=== PATIENT | male | born 1965 | race Caucasian/White ===

== ENCOUNTER 2017-03-16 08:36 | Outpatient (CLI) | payer MEDICAID ==
[~2017-03-16] VITALS: Ht 185.4 cm; Wt 136.1 kg
[2017-03-16 11:09] LABS: BASOPHILS % (AUTO) 0.4 % (0-1); EOSINOPHILS # (AUTO) 0.3 X10'3 (0-0.9); EOSINOPHILS % (AUTO) 3.6 % (0-6); LYMPHOCYTES % (AUTO) 21.4 % (21-51); MEAN CORPUSCULAR HEMOGLOBIN 28.8 PG (27.0-31.0); MEAN CORPUSCULAR HGB CONC 33.9 % (33.0-36.5); MEAN CORPUSCULAR VOLUME 84.9 FL (78-98); MEAN PLATELET VOLUME 10.3 FL (7.4-10.4); MONOCYTES # (AUTO) 0.5 X10'3 (0-0.9); MONOCYTES % (AUTO) 5.5 % (2-12); NEUTROPHILS # (AUTO) 6.6 X10'3 (1.8-7.7); NEUTROPHILS % (AUTO) 69.1 % (42-75); PRE OP HEMATOCRIT 45.6 % (42.0-52.0); PRE OP HEMOGLOBIN 15.4 g/dL (14.0-17.9); PRE OP PLATELET COUNT 179 X10'3 (140-440); RED BLOOD COUNT 5.37 X10'6 (4.70-6.10); RED CELL DISTRIBUTION WIDTH 13.6 % (11.5-14.5)
[2017-03-16 11:10] LABS: CLARITY,URINE CLEAR (Clear); COLOR,URINE YELLOW (Yellow); GLUCOSE, URINE NEGATIVE (Neg); KETONES,URINE NEGATIVE (Neg); LEUKOCYTE ESTERASE ,URINE MODERATE (Neg); NITRITES, URINE NEGATIVE (Neg); OCCULT BLOOD,URINE NEGATIVE (Neg); PROTEIN,URINE NEGATIVE (Neg); UROBILINOGEN,URINE 0.2 E.U/dL (0.2-1.0)
[2017-03-16 11:23] LABS: SQUAMOUS EPITHELIAL CELL,UR FEW /LPF (FEW); UA COLLECTION TYPE NON-SPECIFIED
[2017-03-16 11:24] LABS: BACTERIA,URINE 1+ /HPF (Neg); RBC,URINE 0-2 /HPF (0-2)
[2017-03-16 11:29] LABS: ALBUMIN/GLOBULIN RATIO 1.1 (1.1-1.5); ALKALINE PHOSPHATASE 119 IU/L (46-116); BLOOD UREA NITROGEN 14 MG/DL (7-18); CALCIUM 8.9 MG/DL (8.5-10.1); CHLORIDE 99 MMOL/L (99-107); PRE OP ALT 54 U/L (30-65); PRE OP ANION GAP 7 (8-16); PRE OP AST 24 U/L (10-37); PRE OP BILIRUB, TOTAL 0.5 MG/DL (0.0-1.0); PRE OP GLUCOSE 131 MG/DL (70-104); PRE OP POTASSIUM 3.7 MMOL/L (3.4-5.1); PRE OP SODIUM 139 MMOL/L (135-145); TOTAL CARBON DIOXIDE 32.9 MMOL/L (24-32); TOTAL PROTEIN 7.7 G/DL (6.4-8.2); eGFR 79 ML/MIN
[2017-03-16] MEDS ORDERED: HYDR25TA4 (14:03)
[2017-03-16] MEDS ORDERED: FLUT15.87 (14:03)
[2017-03-16] MEDS ORDERED: PREG100C PO (14:03)
[2017-03-16] MEDS ORDERED: MORP-64 (14:03)
[2017-03-16] MEDS ORDERED: ATOR-2 PO (14:03)
[2017-03-16] MEDS ORDERED: BISA5TAB10 (14:03)
[2017-03-16] MEDS ORDERED: PANT40TA4 (14:03)
[2017-03-16] MEDS ORDERED: AMLO5TAB16 (14:03)
[2017-03-16] MEDS ORDERED: NITR4.1S2 TL (14:03)
[2017-03-16] MEDS ORDERED: HYDR-3973 (14:03)
[2017-03-16] MEDS ORDERED: CHOL400T (14:03)
[2017-03-16] MEDS ORDERED: METO100T14 (14:03)
[2017-03-16] MEDS ORDERED: DULO20CA17 (14:03)
[2017-03-16] MEDS ORDERED: QUET100T33 (14:03)
[2017-03-16] MEDS ORDERED: ASPI-845 (14:03)
[2017-03-20] MEDS ORDERED: QUET-1 PO ×4 (15:44→15:48)
[2017-03-20] MEDS ORDERED: DULO20CA50 PO (15:47)
[2017-03-20] MEDS ORDERED: CHOL400T PO (15:49)
[2017-03-20] MEDS ORDERED: PREG50CA PO (15:51)
[2017-03-20] MEDS ORDERED: PANT-47 PO (15:52)
[2017-03-20] MEDS ORDERED: METO-467 PO ×2 (15:54→15:55)
[2017-03-20] MEDS ORDERED: HYDR-565 PO (15:57)
[2017-03-20] MEDS ORDERED: HYDR25TA4 PO (15:58)
[2017-03-20] MEDS ORDERED: BISA-155 PO (15:59)
[2017-03-20] MEDS ORDERED: FLUT16SP2 BOTHNARES (16:00)
[2017-03-20] MEDS ORDERED: NITR0.4T SL (16:01)
[2017-03-20] MEDS ORDERED: AMLO5TAB4 PO (16:02)
[2017-03-20] MEDS ORDERED: ASPI-845 PO (16:03)
[2017-03-20] MEDS ORDERED: NICO-687 TOP (16:06)
[2017-03-21] MEDS ORDERED: ringers solution, lacted 1,000 ML IV SCH (05:00)
[2017-03-21] MEDS ORDERED: DOCUMENT DATE & TIME OF BETA-BLOCKER PO ONE (05:30)
[2017-03-21] MEDS ORDERED: famotidine 20mg tablet PO ONE (05:30)
[2017-03-21] MEDS ORDERED: ceFAZolin inj. 3,000 MG in normal saline 100ml IV soln 100 ML IV ONE (05:30)
[2017-03-31] MEDS ORDERED: CYCLOSPORINE (08:01)
[2017-03-31] MEDS ORDERED: antibiotic (08:02)
[2017-03-31] MEDS ORDERED: OXYC-657 PO (08:03)
== END 2017-03-16 23:59 | disposition home or self-care (01) ==
LOC: PRE-OP 08:36 → EDSTATUS 03-21 14:30
PROVIDERS: ATTEND Surgery
DX: D17.30 Benign lipomatous neoplasm of skin and subcutaneous tissue of unspecified sites (principal)
CPT/HCPCS: 36415; 80053; 81001; 85025; 87077; 87088; 87186; J0690; J7030; J7120

== ENCOUNTER 2017-10-10 19:10 | Emergency (ER) | payer MEDICAID ==
[~2017-10-10] VITALS: Ht 188 cm; Wt 141.6 kg
[~2017-10-10 19:10] MED LIST: AMLO5TAB4 PO; ASPI-845 PO; ATOR-2 PO; BISA-155 PO; CHOL400T PO; DULO20CA50 PO; FLUT16SP2 BOTHNARES; HYDR-565 PO; HYDR25TA4 PO; METO-467 PO; NICO-687 TOP; NITR0.4T SL; PANT-47 PO; PREG50CA PO; QUET-1 PO; antibiotic
[2017-10-10 19:48] LABS: BASOPHILS # (AUTO) 0.2 X10'3 (0-0.2); BASOPHILS % (AUTO) 1.3 % (0-1); EOSINOPHILS # (AUTO) 0.5 X10'3 (0-0.9); HEMATOCRIT 42.5 % (42.0-52.0); HEMOGLOBIN 14.5 g/dl (14.0-17.9); LYMPHOCYTES # (AUTO) 2.1 X10'3 (1.1-4.8); LYMPHOCYTES % (AUTO) 18.2 % (21-51); MEAN CORPUSCULAR HEMOGLOBIN 29.2 PG (27.0-31.0); MEAN CORPUSCULAR HGB CONC 34.2 % (33.0-36.5); MEAN CORPUSCULAR VOLUME 85.2 FL (78-98); MEAN PLATELET VOLUME 9.3 FL (7.4-10.4); MONOCYTES # (AUTO) 0.7 X10'3 (0-0.9); MONOCYTES % (AUTO) 6.2 % (2-12); NEUTROPHILS # (AUTO) 8.2 X10'3 (1.8-7.7); NEUTROPHILS % (AUTO) 70.3 % (42-75); PLATELET COUNT 196 X10'3 (140-440); RED BLOOD COUNT 4.98 X10'6 (4.70-6.10); WHITE BLOOD COUNT 11.7 X10'3 (4.5-11.0)
[2017-10-10 19:58] LABS: PARTIAL THROMBOPLASTIN TIME 29 SECONDS (22-32); PROTHROMBIN TIME 10.1 SECONDS (9.0-12.0)
[2017-10-10 20:03] LABS: ALANINE AMINOTRANSFERASE 55 U/L (12-78); ALBUMIN 3.7 G/DL (3.4-5.0); ALBUMIN/GLOBULIN RATIO 1.1 (1.1-1.5); ALKALINE PHOSPHATASE 86 IU/L (46-116); ANION GAP 7 (8-16); ASPARTATE AMINO TRANSFERASE 23 U/L (10-37); BILIRUBIN,TOTAL 0.3 MG/DL (0.1-1.0); BLOOD UREA NITROGEN 12 MG/DL (7-18); BUN/CREATININE RATIO 11.8 (5.4-32.0); CALCIUM 9.1 MG/DL (8.5-10.1); CHLORIDE 99 MMOL/L (99-107); CREATININE 1.02 MG/DL (0.60-1.10); GLUCOSE 116 MG/DL (70-104); POTASSIUM 3.7 MMOL/L (3.5-5.1); SODIUM 135 MMOL/L (135-145); TOTAL CARBON DIOXIDE 28.8 MMOL/L (24-32); eGFR 77 ML/MIN
[2017-10-10] MEDS ORDERED: HYDROcodone/acetaminophen 5mg/325mg tablet PO ONE (20:30)
[2017-10-10] MEDS ORDERED: AMOX-419 PO (20:40)
[2017-10-10] MEDS ORDERED: METH4TAB3 PO (20:40)
[2017-10-10 20:51] VITALS: BP 156/90
== END 2017-10-10 20:57 | disposition home or self-care (01) ==
LOC: ER 19:11
DX: S80.02XA Contusion of left knee, initial encounter (principal); R42 Dizziness and giddiness; M25.462 Effusion, left knee; I25.10 Atherosclerotic heart disease of native coronary artery without angina pectoris; I25.2 Old myocardial infarction; F17.200 Nicotine dependence, unspecified, uncomplicated; Z98.61 Coronary angioplasty status; Z88.8 Allergy status to other drugs, medicaments and biological substances; W18.30XA Fall on same level, unspecified, initial encounter; Y93.89 Activity, other specified; Y92.89 Other specified places as the place of occurrence of the external cause; Y99.8 Other external cause status
CPT/HCPCS: 36415; 70450; 71045; 73564; 80053; 83880; 84484; 85025; 85610; 85730; 93005; 99285

== ENCOUNTER 2018-11-09 11:18 | Day surgery (SDC) | payer MEDICAID ==
[2018-11-09] VITALS (9 sets, daily range): BP systolic 132–153; BP diastolic 74–98
[~2018-11-09] VITALS: Ht 185.4 cm; Wt 137.9 kg
[~2018-11-09 11:18] MED LIST changes: +HYDR-4353 PO; -HYDR-565 PO; +METH4TAB3 PO
[2018-11-09] MEDS ORDERED: normal saline 1000ml 1,000 ML IV SCH (11:45)
[2018-11-09] MEDS ORDERED: diphenhydrAMINE 25mg capsule PO ONE (11:45)
[2018-11-09] MEDS ORDERED: HYDR25TA4 PO (12:35)
[2018-11-09] MEDS ORDERED: METO-477 PO (12:35)
[2018-11-09] MEDS ORDERED: CLOP75TA15 PO (12:35)
[2018-11-09] MEDS ORDERED: DULO-31 PO ×2 (12:35)
[2018-11-09 12:37] LABS: PARTIAL THROMBOPLASTIN TIME 30 SECONDS (22-32)
[2018-11-09 12:40] LABS: ALANINE AMINOTRANSFERASE 31 U/L (12-78); ALBUMIN 4.7 G/DL (3.4-5.0); ALBUMIN/GLOBULIN RATIO 1.3 (1.1-1.5); ALKALINE PHOSPHATASE 87 IU/L (46-116); ANION GAP 12 (8-16); ASPARTATE AMINO TRANSFERASE 10 U/L (10-37); BILIRUBIN,TOTAL 0.5 MG/DL (0.1-1.0); BLOOD UREA NITROGEN 9 MG/DL (7-18); BUN/CREATININE RATIO 10.5 (5.4-32.0); CALCIUM 9.4 MG/DL (8.5-10.1); CHLORIDE 101 MMOL/L (99-107); CREATININE 0.86 MG/DL (0.60-1.10); GLUCOSE 93 MG/DL (70-104); SODIUM 141 MMOL/L (135-145); TOTAL CARBON DIOXIDE 27.6 MMOL/L (24-32); TOTAL PROTEIN 8.2 G/DL (6.4-8.2); eGFR > 90 ML/MIN
[2018-11-09] MEDS ORDERED: OXYGEN NASALCANN (12:40)
[2018-11-09] MEDS ORDERED: ALB0.5UD IH (12:40)
[2018-11-09] MEDS ORDERED: FURO40TA4 PO (12:40)
[2018-11-09] MEDS ORDERED: POTA20TA19 PO (12:40)
[2018-11-09 12:49] LABS: BASOPHILS # (AUTO) 0.1 X10'3 (0-0.2); BASOPHILS % (AUTO) 1.2 % (0-1); EOSINOPHILS # (AUTO) 0.3 X10'3 (0-0.9); EOSINOPHILS % (AUTO) 3.5 % (0-6); HEMATOCRIT 49.7 % (42.0-52.0); HEMOGLOBIN 17.3 g/dl (14.0-17.9); LYMPHOCYTES % (AUTO) 27.2 % (21-51); MEAN CORPUSCULAR HEMOGLOBIN 31.7 PG (27.0-31.0); MEAN CORPUSCULAR HGB CONC 34.7 g/dL (33.0-36.5); MEAN CORPUSCULAR VOLUME 91.3 FL (78-98); MONOCYTES # (AUTO) 0.5 X10'3 (0-0.9); MONOCYTES % (AUTO) 6.8 % (2-12); NEUTROPHILS # (AUTO) 4.6 X10'3 (1.8-7.7); NEUTROPHILS % (AUTO) 61.3 % (42-75); PLATELET COUNT 200 X10'3 (140-440); RED BLOOD COUNT 5.44 X10'6 (4.70-6.10); RED CELL DISTRIBUTION WIDTH 16.1 % (11.5-14.5); WHITE BLOOD COUNT 7.5 X10'3 (4.5-11.0)
[2018-11-09 12:50] LABS: LARGE PLATELETS FEW; PLATELET ESTIMATE NORMAL
[2018-11-09] MEDS ORDERED: midazolam 2 mg/2 ml injection ONE ×2 (14:03→14:33)
[2018-11-09] MEDS ORDERED: iohexol 350MG/ML 100ml bottle IV ONE ×2 (14:04→14:50)
[2018-11-09] MEDS ORDERED: fentaNYL/PF 50MCG/1 ML 2ML syringe ONE ×2 (14:04→14:34)
[2018-11-09] MEDS ORDERED: iohexol 350 MG/ML 50ML vial IV ONE (14:04)
[2018-11-09] MEDS ORDERED: LIDOcaine 1% (10mg/ml)w/preservative injection 20ml MDV ONE (14:04)
[2018-11-09] MEDS ORDERED: proCHLORperazine 10 MG/2 ml inj ONE (14:27)
[2018-11-09] MEDS ORDERED: HYDROcodone/acetaminophen 5mg/325mg tablet PO PRN (15:40)
[2018-11-09] MEDS ORDERED: proCHLORperazine 10 MG/2 ml inj IV PRN (15:40)
[2018-11-09] MEDS ORDERED: ondansetron/PF 4mg/2ml inj IV PRN (15:40)
[2018-11-09] MEDS ORDERED: normal saline 1000ml 1,000 ML IV ONE (15:40)
[2018-11-09] MEDS ORDERED: HYDROcodone/acetaminophen 10/325mg tab PO PRN (15:40)
== END 2018-11-09 18:40 | disposition home or self-care (01) ==
LOC: SSTAY O 11:18
PROVIDERS: ATTEND Internal Medicine Cardiovascular Disease
DX: R94.39 Abnormal result of other cardiovascular function study (principal); R07.9 Chest pain, unspecified; I25.10 Atherosclerotic heart disease of native coronary artery without angina pectoris; I25.82 Chronic total occlusion of coronary artery; Z79.899 Other long term (current) drug therapy
CPT/HCPCS: 36415; 80053; 83735; 85025; 85610; 85730; 93005; 93459; 99152; 99153; C1769; C1894; J0780; J1644; J2001; J2250; J3010; J7030; Q0163; Q9967; A4620; A6258; C1760

== ENCOUNTER 2020-05-08 10:44 | Day surgery (SDC) | payer MEDICAID ==
[2020-05-08] VITALS (12 sets, daily range): BP systolic 129–165; BP diastolic 66–110
[~2020-05-08] VITALS: Ht 185.4 cm; Wt 123.8 kg
[~2020-05-08 10:44] MED LIST changes: +ALB0.5UD IH; -BISA-155 PO; +CLOP75TA15 PO; +DULO-31 PO; -DULO20CA50 PO; -FLUT16SP2 BOTHNARES; +FURO40TA4 PO; -HYDR-4353 PO; -METH4TAB3 PO; -METO-467 PO; +METO-477 PO; +OXYGEN NASALCANN; +POTA20TA19 PO; -QUET-1 PO; -antibiotic
[2020-05-08] MEDS ORDERED: diphenhydrAMINE 25mg capsule PO PRN (11:00)
[2020-05-08] MEDS ORDERED: normal saline 1,000 ML IV SCH (11:00)
[2020-05-08] MEDS ORDERED: LISI20TA28 PO (11:49)
[2020-05-08] MEDS ORDERED: APIX5TAB3 PO (11:49)
[2020-05-08] MEDS ORDERED: midazolam 1 mg/ML 2ml injection ONE ×3 (12:01→13:03)
[2020-05-08] MEDS ORDERED: fentaNYL/PF 50MCG/1 ML 2ML syringe ONE (12:01)
[2020-05-08] MEDS ORDERED: IOHEXOL 350 MG/ML INFUS..BTL 75ML IV ONE (12:01)
[2020-05-08] MEDS ORDERED: heparin 1,000unit/ml 10ml vial 10 ML ONE (12:01)
[2020-05-08] MEDS ORDERED: LIDOcaine 1% (10mg/ml)w/preservative injection 20ml MDV ONE (12:01)
[2020-05-08] MEDS ORDERED: iohexol 350MG/ML 100ml bottle IV ONE ×2 (12:02→13:24)
[2020-05-08 12:38] LABS: ALBUMIN 4.1 G/DL (3.4-5.0); ANION GAP 11 (8-16); BLOOD UREA NITROGEN 9 MG/DL (7-18); BUN/CREATININE RATIO 8.9 (5.4-32.0); CALCIUM 9.6 MG/DL (8.5-10.1); CHLORIDE 103 MMOL/L (99-107); CREATININE 1.01 MG/DL (0.60-1.10); GLUCOSE 107 MG/DL (70-104); MAGNESIUM 2.2 MG/DL (1.5-2.4); POTASSIUM 3.6 MMOL/L (3.5-5.1); SODIUM 142 MMOL/L (135-145); TOTAL CARBON DIOXIDE 28.3 MMOL/L (24-32); eGFR 77 ML/MIN
[2020-05-08 12:40] LABS: BASOPHILS # (AUTO) 0.1 X10'3 (0-0.2); EOSINOPHILS # (AUTO) 0.2 X10'3 (0-0.9); EOSINOPHILS % (AUTO) 1.6 % (0-6); HEMATOCRIT 50.4 % (42.0-52.0); HEMOGLOBIN 16.3 g/dl (14.0-17.9); LYMPHOCYTES # (AUTO) 2.1 X10'3 (1.1-4.8); LYMPHOCYTES % (AUTO) 17.9 % (21-51); MEAN CORPUSCULAR HEMOGLOBIN 27.1 PG (27.0-31.0); MEAN CORPUSCULAR HGB CONC 32.5 g/dL (33.0-36.5); MEAN CORPUSCULAR VOLUME 83.4 FL (78-98); MEAN PLATELET VOLUME 10.1 FL (7.4-10.4); MONOCYTES # (AUTO) 0.9 X10'3 (0-0.9); MONOCYTES % (AUTO) 7.2 % (2-12); NEUTROPHILS # (AUTO) 8.6 X10'3 (1.8-7.7); NEUTROPHILS % (AUTO) 72.3 % (42-75); PLATELET COUNT 186 X10'3 (140-440); RED BLOOD COUNT 6.04 X10'6 (4.70-6.10); RED CELL DISTRIBUTION WIDTH 18.8 % (11.5-14.5); WHITE BLOOD COUNT 11.9 X10'3 (4.5-11.0)
[2020-05-08 13:26] LABS: ANISOCYTOSIS 2+; LARGE PLATELETS FEW; PLATELET ESTIMATE NORMAL; POLYCHROMASIA 1+
[2020-05-08] MEDS ORDERED: ondansetron/PF 4mg/2ml inj IV PRN (14:15)
[2020-05-08] MEDS ORDERED: proCHLORperazine 10 MG/2 ml inj IV PRN (14:20)
[2020-05-08] MEDS ORDERED: HYDROcodone/acetaminophen 5mg/325mg tablet PO PRN (14:20)
[2020-05-08] MEDS ORDERED: HYDROcodone/acetaminophen 10/325mg tab PO PRN (14:20)
== END 2020-05-08 17:36 | disposition home or self-care (01) ==
LOC: SSTAY O 10:44
PROVIDERS: ATTEND Internal Medicine Cardiovascular Disease
DX: R94.39 Abnormal result of other cardiovascular function study (principal); R07.89 Other chest pain; I25.119 Atherosclerotic heart disease of native coronary artery with unspecified angina pectoris; I25.82 Chronic total occlusion of coronary artery; I25.2 Old myocardial infarction; I48.0 Paroxysmal atrial fibrillation; I10 Essential (primary) hypertension; J44.9 Chronic obstructive pulmonary disease, unspecified; Z95.1 Presence of aortocoronary bypass graft; E78.5 Hyperlipidemia, unspecified; Z88.8 Allergy status to other drugs, medicaments and biological substances
CPT/HCPCS: 36415; 80048; 83735; 85025; 85610; 92920; 93459; 99152; 99153; C1725; C1751; C1760; C1769; C1894; J1644; J2001; J2250; J3010; J7030; Q0163; Q9967; 85008; A4620; A6258; C9607

== ENCOUNTER 2021-10-22 11:03 | Emergency (ER) | payer MEDICAID ==
[~2021-10-22] VITALS: Ht 185.4 cm; Wt 132.7 kg
[~2021-10-22 11:03] MED LIST changes: +APIX5TAB3 PO; -ASPI-845 PO; -CHOL400T PO; -CLOP75TA15 PO; +LISI20TA28 PO; -NICO-687 TOP; +POTA-207 PO; -POTA20TA19 PO
[2021-10-22 12:00] LABS: BASOPHILS # (AUTO) 0.1 X10'3 (0-0.2); BASOPHILS % (AUTO) 1.2 % (0-1); EOSINOPHILS # (AUTO) 0.2 X10'3 (0-0.9); EOSINOPHILS % (AUTO) 1.7 % (0-6); HEMATOCRIT 51.3 % (42.0-52.0); HEMOGLOBIN 16.2 g/dl (14.0-17.9); LYMPHOCYTES # (AUTO) 2.1 X10'3 (1.1-4.8); LYMPHOCYTES % (AUTO) 16.8 % (21-51); MEAN CORPUSCULAR HEMOGLOBIN 23.6 PG (27.0-31.0); MEAN CORPUSCULAR HGB CONC 31.6 g/dL (33.0-36.5); MEAN CORPUSCULAR VOLUME 74.8 FL (78-98); MEAN PLATELET VOLUME 9.6 FL (7.4-10.4); MONOCYTES # (AUTO) 0.8 X10'3 (0-0.9); MONOCYTES % (AUTO) 6.6 % (2-12); NEUTROPHILS # (AUTO) 9.1 X10'3 (1.8-7.7); NEUTROPHILS % (AUTO) 73.7 % (42-75); PLATELET COUNT 175 X10'3 (140-440); RED BLOOD COUNT 6.86 X10'6 (4.70-6.10); RED CELL DISTRIBUTION WIDTH 22.3 % (11.5-14.5); WHITE BLOOD COUNT 12.3 X10'3 (4.5-11.0)
[2021-10-22 12:18] LABS: ALANINE AMINOTRANSFERASE 32 U/L (12-78); ALBUMIN 4.2 G/DL (3.4-5.0); ALKALINE PHOSPHATASE 102 IU/L (46-116); ANION GAP 12 (8-16); ASPARTATE AMINO TRANSFERASE 18 U/L (10-37); BILIRUBIN,TOTAL 0.4 MG/DL (0.1-1.0); BLOOD UREA NITROGEN 9 MG/DL (7-18); CALCIUM 9.3 MG/DL (8.5-10.1); CHLORIDE 96 MMOL/L (99-107); CREATININE 1.13 MG/DL (0.60-1.10); GLUCOSE 140 MG/DL (70-104); POTASSIUM 3.2 MMOL/L (3.5-5.1); SODIUM 138 MMOL/L (135-145); TOTAL CARBON DIOXIDE 30.3 MMOL/L (24-32); TOTAL PROTEIN 8.4 G/DL (6.4-8.2); eGFR 67 ML/MIN
[2021-10-22 12:20] LABS: ANISOCYTOSIS 3+; GIANT PLATELET FEW; LARGE PLATELETS FEW; MICROCYTOSIS 1+; PLATELET ESTIMATE NORMAL
[2021-10-22 12:21] LABS: HYPOCHROMASIA 1+
[2021-10-22 12:26] LABS: MAGNESIUM 2.1 MG/DL (1.5-2.4)
[2021-10-22] MEDS ORDERED: potassium Cl 20 mEq SR tablet PO STA (13:09)
[2021-10-22 13:34] VITALS: BP 127/91
[2021-10-22] MEDS ORDERED: diphenhydrAMINE 25mg capsule PO PRN (14:15)
[2021-10-22] MEDS ORDERED: FURO80TA3 PO (14:52)
[2021-10-22] MEDS ORDERED: PREG300C19 PO (14:52)
[2021-10-22] MEDS ORDERED: DULO60CA65 PO (14:52)
[2021-10-22] MEDS ORDERED: METO50TA16 PO (14:52)
[2021-10-22] MEDS ORDERED: ISOS30TA84 PO (14:56)
[2021-10-22] MEDS ORDERED: ATRIN INH (14:56)
[2021-10-22] MEDS ORDERED: PROZ10C PO (14:56)
[2021-10-22] MEDS ORDERED: MIRT45TA83 PO (14:56)
[2021-10-22] MEDS ORDERED: SPIR25TA5 PO (14:56)
[2021-10-22] MEDS ORDERED: ARIP5TAB60 PO (14:57)
== END 2021-10-22 13:35 | disposition home or self-care (01) ==
LOC: ER 11:03
DX: R07.9 Chest pain, unspecified (principal); I11.9 Hypertensive heart disease without heart failure; Z98.890 Other specified postprocedural states; Z88.2 Allergy status to sulfonamides; Z79.899 Other long term (current) drug therapy; Z79.1 Long term (current) use of non-steroidal anti-inflammatories (NSAID); Z79.2 Long term (current) use of antibiotics
CPT/HCPCS: 36415; 71045; 80053; 83735; 83880; 84484; 85008; 85025; 85610; 93005; 99285

== ENCOUNTER 2021-10-22 13:53 | Day surgery (SDC) | payer MEDICAID ==
[~2021-10-22] VITALS: Ht 185.4 cm; Wt 132.7 kg
[2021-10-22] VITALS (9 sets, daily range): BP systolic 114–158; BP diastolic 69–104
[2021-10-22] MEDS ORDERED: fentaNYL/PF 50MCG/1 ML 2ML syringe ONE (14:49)
[2021-10-22] MEDS ORDERED: LIDOcaine 1%/PF 5ML 10 MG/ML VIAL ONE ×2 (14:49)
[2021-10-22] MEDS ORDERED: midazolam 1 mg/ML 2ml injection ONE ×2 (14:49→15:12)
[2021-10-22] MEDS ORDERED: heparin 1,000unit/ml 10ml vial 10 ML ONE (14:50)
[2021-10-22] MEDS ORDERED: iohexol 350MG/ML 100ml bottle IV ONE (14:50)
[2021-10-22] MEDS ORDERED: DULO60CA65 PO (14:52)
[2021-10-22] MEDS ORDERED: PREG300C19 PO (14:52)
[2021-10-22] MEDS ORDERED: METO50TA16 PO (14:52)
[2021-10-22] MEDS ORDERED: FURO80TA3 PO (14:52)
[2021-10-22] MEDS ORDERED: PROZ10C PO (14:56)
[2021-10-22] MEDS ORDERED: SPIR25TA5 PO (14:56)
[2021-10-22] MEDS ORDERED: ISOS30TA84 PO (14:56)
[2021-10-22] MEDS ORDERED: MIRT45TA83 PO (14:56)
[2021-10-22] MEDS ORDERED: ATRIN INH (14:56)
[2021-10-22] MEDS ORDERED: ARIP5TAB60 PO (14:57)
[2021-10-22] MEDS ORDERED: metoprolol tartrate 1mg/ml inj IV ONE ×3 (15:26→16:15)
[2021-10-22] MEDS ORDERED: normal saline 1000ml 1,000 ML IV SCH (16:10)
[2021-10-22] MEDS ORDERED: HYDROcodone/acetaminophen 10/325mg tab PO PRN (16:15)
[2021-10-22] MEDS ORDERED: ondansetron/PF 4mg/2ml inj IV PRN (16:15)
[2021-10-22] MEDS ORDERED: HYDROcodone/acetaminophen 5mg/325mg tablet PO PRN (16:15)
[2021-10-22] MEDS ORDERED: diphenhydrAMINE 25mg capsule PO PRN (16:55)
[2021-10-22] MEDS ORDERED: normal saline 1,000 ML IV SCH (16:55)
== END 2021-10-22 19:00 | disposition home or self-care (01) ==
LOC: SSTAY O 13:53
PROVIDERS: ATTEND Internal Medicine Cardiovascular Disease
DX: I25.10 Atherosclerotic heart disease of native coronary artery without angina pectoris (principal); I25.82 Chronic total occlusion of coronary artery; I25.5 Ischemic cardiomyopathy; I10 Essential (primary) hypertension; E78.5 Hyperlipidemia, unspecified; I48.91 Unspecified atrial fibrillation; I25.2 Old myocardial infarction; Z95.5 Presence of coronary angioplasty implant and graft; Z79.899 Other long term (current) drug therapy; Z98.890 Other specified postprocedural states; I48.20 Chronic atrial fibrillation, unspecified
CPT/HCPCS: 93459; 99152; 99153; C1760; C1769; C1894; J1644; J2250; J3010; J3490; J7030; Q9967; A6258

== ENCOUNTER 2022-05-16 11:00 | Day surgery (SDC) | payer MEDICAID ==
[~2022-05-16] VITALS: Ht 188 cm; Wt 133.0 kg
[2022-05-16] VITALS (9 sets, daily range): BP systolic 112–131; BP diastolic 51–86
[~2022-05-16 11:00] MED LIST changes: -ALB0.5UD IH; -AMLO5TAB4 PO; +ARIP5TAB60 PO; +ATRIN INH; -DULO-31 PO; +DULO60CA65 PO; -FURO40TA4 PO; +FURO80TA3 PO; +ISOS30TA84 PO; +METO50TA16 PO; +MIRT45TA83 PO; +PREG300C19 PO; -PREG50CA PO; +PROZ10C PO; +SPIR25TA5 PO
[2022-05-16 11:53] LABS: BASOPHILS # (AUTO) 0.1 X10'3 (0-0.2); MEAN PLATELET VOLUME 9.7 FL (7.4-10.4); MONOCYTES # (AUTO) 0.8 X10'3 (0-0.9); NEUTROPHILS # (AUTO) 7.2 X10'3 (1.8-7.7); NEUTROPHILS % (AUTO) 68.8 % (42-75); WHITE BLOOD COUNT 10.4 X10'3 (4.5-11.0)
[2022-05-16 11:55] LABS: BASOPHILS % (AUTO) 1.4 % (0-1); EOSINOPHILS # (AUTO) 0.1 X10'3 (0-0.9); EOSINOPHILS % (AUTO) 1.3 % (0-6); HEMATOCRIT 47.7 % (42.0-52.0); HEMOGLOBIN 15.4 g/dl (14.0-17.9); LYMPHOCYTES # (AUTO) 2.2 X10'3 (1.1-4.8); LYMPHOCYTES % (AUTO) 20.7 % (21-51); MEAN CORPUSCULAR HEMOGLOBIN 24.9 PG (27.0-31.0); MEAN CORPUSCULAR HGB CONC 32.3 g/dL (33.0-36.5); MONOCYTES % (AUTO) 7.8 % (2-12); PLATELET COUNT 192 X10'3 (140-440); RED BLOOD COUNT 6.19 X10'6 (4.70-6.10); RED CELL DISTRIBUTION WIDTH 18.2 % (11.5-14.5)
[2022-05-16] MEDS ORDERED: potassium chloride 10mEq ER tablet PO SCH (12:00)
[2022-05-16 12:02] LABS: ALBUMIN 3.7 G/DL (3.4-5.0); ANION GAP 8 (8-16); BLOOD UREA NITROGEN 12 MG/DL (7-18); BUN/CREATININE RATIO 10.4 (10.0-20.0); CALCIUM 9.4 MG/DL (8.5-10.1); CHLORIDE 95 MMOL/L (99-107); CREATININE 1.15 MG/DL (0.60-1.10); GLUCOSE 275 MG/DL (70-104); MAGNESIUM 1.7 MG/DL (1.5-2.4); SODIUM 132 MMOL/L (135-145); eGFR 66 ML/MIN
[2022-05-16 12:04] LABS: POTASSIUM 2.9 MMOL/L (3.5-5.1)
[2022-05-16] MEDS ORDERED: potassium CL 10mEq/100ml bag 100 ML IV SCH (12:35)
[2022-05-16] MEDS: LORazepam 0.5 MG tablet PO ONE (13:08)
[2022-05-16] MEDS: normal saline 1,000 ML IV SCH (13:08)
[2022-05-16] MEDS: diphenhydrAMINE 25mg capsule PO PRN (13:09)
[2022-05-16] MEDS ORDERED: potassium CL 10mEq/100ml bag 100 ML IV ONE (13:15)
[2022-05-16] MEDS ORDERED: POTASSIUM CL 10 MEQ/100 ML IV ONE (13:19)
[2022-05-16] MEDS: POTASSIUM CL 10 MEQ/100 ML IV ONE (13:39)
[2022-05-16] MEDS ORDERED: midazolam 1 mg/ML 2ml injection ONE ×3 (14:01→14:46)
[2022-05-16] MEDS ORDERED: fentaNYL/PF 50MCG/1 ML 2ML syringe ONE (14:01)
[2022-05-16] MEDS ORDERED: iohexol 350 MG/ML 50ML vial IV ONE ×2 (14:02→14:56)
[2022-05-16] MEDS ORDERED: LIDOcaine 1% 30ml preserv. free vial ONE (14:02)
[2022-05-16] MEDS ORDERED: heparin 1,000unit/ml 10ml vial 10 ML ONE (14:02)
[2022-05-16] MEDS ORDERED: iohexol 350MG/ML 100ml bottle IV ONE (14:02)
[2022-05-16] MEDS ORDERED: nitroGLYCERIN-Tridil 50MG/D5W 250 ML IV ONE (14:16)
[2022-05-16] MEDS ORDERED: verapamil 2.5 mg/ml inj IV ONE (14:16)
[2022-05-16] MEDS ORDERED: HYDROcodone/acetaminophen 10/325mg tab PO PRN (15:40)
[2022-05-16] MEDS ORDERED: proCHLORperazine 10 MG/2 ml inj IV PRN (15:40)
[2022-05-16] MEDS ORDERED: normal saline 1000ml 1,000 ML IV SCH (15:40)
[2022-05-16] MEDS ORDERED: ondansetron/PF 4mg/2ml inj IV PRN (15:40)
[2022-05-16] MEDS ORDERED: HYDROcodone/acetaminophen 5mg/325mg tablet PO PRN (15:40)
[2022-05-16] MEDS: HYDROcodone/acetaminophen 10/325mg tab PO ONE (16:40)
== END 2022-05-16 19:05 | disposition home or self-care (01) ==
LOC: SSTAY O 11:00
PROVIDERS: ATTEND Internal Medicine Cardiovascular Disease
DX: I25.119 Atherosclerotic heart disease of native coronary artery with unspecified angina pectoris (principal); I48.91 Unspecified atrial fibrillation; I48.20 Chronic atrial fibrillation, unspecified; I25.82 Chronic total occlusion of coronary artery; I25.2 Old myocardial infarction; I42.9 Cardiomyopathy, unspecified; J44.9 Chronic obstructive pulmonary disease, unspecified; Z87.891 Personal history of nicotine dependence
CPT/HCPCS: 36415; 80048; 83735; 85025; 85610; 93005; 93459; 99152; 99153; C1760; C1894; J1644; J2250; J3010; J3480; J3490; J7030; Q0163; Q9967; A4615; A6258

== ENCOUNTER 2023-09-08 22:06 | Inpatient (IN) | payer MEDICAID ==
[~2023-09-08] VITALS: Ht 185.4 cm; Wt 118.0 kg
[~2023-09-08 22:06] MED LIST changes: -ARIP5TAB60 PO; -LISI20TA28 PO; -METO-477 PO; -MIRT45TA83 PO; -OXYGEN NASALCANN; -PREG300C19 PO; +PREG300C20 PO; -PROZ10C PO; +temazepam 15mg capsule PO PRN
[2023-09-08] MEDS: Potassium Cl inj 40 MEQ in sodium chloride 0.45% 500ml 500 ML IV ONE (22:52)
[2023-09-08 23:08] LABS: BASOPHILS # (AUTO) 0.1 X10'3 (0-0.2); BASOPHILS % (AUTO) 0.8 % (0-1); EOSINOPHILS # (AUTO) 0.1 X10'3 (0-0.9); EOSINOPHILS % (AUTO) 0.9 % (0-6); HEMOGLOBIN 16.8 g/dl (14.0-17.9); LYMPHOCYTES # (AUTO) 2.1 X10'3 (1.1-4.8); LYMPHOCYTES % (AUTO) 18.7 % (21-51); MEAN CORPUSCULAR HEMOGLOBIN 29.4 PG (27.0-31.0); MEAN CORPUSCULAR HGB CONC 34.2 g/dL (33.0-36.5); MEAN CORPUSCULAR VOLUME 85.9 FL (78-98); MEAN PLATELET VOLUME 10.4 FL (7.4-10.4); NEUTROPHILS # (AUTO) 7.9 X10'3 (1.8-7.7); NEUTROPHILS % (AUTO) 70.6 % (42-75); PLATELET COUNT 145 X10'3 (140-440); WHITE BLOOD COUNT 11.2 X10'3 (4.5-11.0)
[2023-09-08 23:31] LABS: ALANINE AMINOTRANSFERASE 47 U/L (12-78); ALBUMIN 3.2 G/DL (3.4-5.0); ALBUMIN/GLOBULIN RATIO 0.9 (1.1-1.5); ALKALINE PHOSPHATASE 86 IU/L (46-116); ANION GAP 8 (8-16); ASPARTATE AMINO TRANSFERASE 30 U/L (10-37); BILIRUBIN,TOTAL 1.2 MG/DL (0.1-1.0); BLOOD UREA NITROGEN 15 MG/DL (7-18); BUN/CREATININE RATIO 12.2 (10.0-20.0); CALCIUM 8.3 MG/DL (8.5-10.1); CHLORIDE 90 MMOL/L (99-107); CREATININE 1.23 MG/DL (0.60-1.10); GLUCOSE 130 MG/DL (70-104); MAGNESIUM 2.5 MG/DL (1.5-2.4); SODIUM 130 MMOL/L (135-145); TOTAL CARBON DIOXIDE 32.5 MMOL/L (24-32); TOTAL PROTEIN 6.7 G/DL (6.4-8.2); eCRCL 75 ML/MIN; eGFR 61 ML/MIN
[2023-09-08] MEDS ORDERED: mag hydrox/Alum hydrox/simeth 30ml oral suspension PO PRN (23:55)
[2023-09-08] MEDS ORDERED: ipratropium/albuterol 3ml nebule NEB PRN (23:55)
[2023-09-08] MEDS ORDERED: ipratropium/albuterol 3ml nebule NEB ONE (23:55)
[2023-09-08] MEDS ORDERED: morphine 2 MG/ML inj. syringe IV PRN (23:55)
[2023-09-08] MEDS ORDERED: magnesium hydroxide 30ml (MOM) UD suspension PO PRN (23:55)
[2023-09-08] MEDS ORDERED: magnesium sulf-water 2g/50mL 50 ML IV PRN (23:55)
[2023-09-08] MEDS ORDERED: ondansetron/PF 4mg/2ml inj IV PRN (23:55)
[2023-09-08] MEDS ORDERED: magnesium sulf-water 4G/100mL 100 ML IV PRN (23:55)
[2023-09-08] MEDS ORDERED: magnesium Cl slow-release 64mg tablet PO PRN (23:55)
[2023-09-09] VITALS (11 sets, daily range): BP systolic 97–133; BP diastolic 38–87; PULSE 73–98; RESP 10–20; TEMP 96.7–98; O2SAT 93–98
[2023-09-09 00:05] LABS: POTASSIUM 1.8 MMOL/L (3.5-5.1)
[2023-09-09 00:23] LABS: BILIRUBIN,URINE NEGATIVE (Neg); CLARITY,URINE SLIGHTLY CLOUDY (Clear); COLOR,URINE STRAW (Yellow); GLUCOSE, URINE NEGATIVE (Neg); KETONES,URINE NEGATIVE (Neg); LEUKOCYTE ESTERASE ,URINE MODERATE (Neg); NITRITES, URINE NEGATIVE (Neg); OCCULT BLOOD,URINE NEGATIVE (Neg); PH,URINE 7.5 (4.8-8.0); PROTEIN,URINE NEGATIVE (Neg); UROBILINOGEN,URINE 0.2 E.U/dL (0.2-1.0)
[2023-09-09 00:35] LABS: PRO BRAIN NATRIURETIC PEPTIDE 287 PG/ML (0-125)
[2023-09-09 00:44] LABS: UA COLLECTION TYPE URINAL
[2023-09-09 00:46] LABS: BACTERIA,URINE 1+ /HPF (Neg); RBC,URINE 0-2 /HPF (0-2); SQUAMOUS EPITHELIAL CELL,UR FEW /LPF (FEW); WBC CLUMPS,URINE FEW /HPF (NEGATIVE)
[2023-09-09] MEDS: CefTRIAXone/D5W-Rocephin 1gm 50 ML IV SCH (00:54)
[2023-09-09] MEDS: normal saline 1000ml 1,000 ML IV SCH (00:54)
[2023-09-09] MEDS: nicotine 21mg patch - 24 hr TD SCH (00:55)
[2023-09-09] MEDS: Melatonin 3mg tablet PO SCH (00:55)
[2023-09-09] MEDS ORDERED: ALBU8HFA INH (02:01)
[2023-09-09] MEDS ORDERED: LEVE250T PO (02:01)
[2023-09-09] MEDS: potassium Cl 40MEQ/1/2NS 520ml 520 ML IV PRN (04:27)
[2023-09-09 06:45] LABS: HEMOGLOBIN A1C 6.5 % (4.5-6.2)
[2023-09-09 06:46] LABS: BASOPHILS # (AUTO) 0.1 X10'3 (0-0.2); EOSINOPHILS # (AUTO) 0.1 X10'3 (0-0.9); MEAN CORPUSCULAR HGB CONC 33.8 g/dL (33.0-36.5); NEUTROPHILS # (AUTO) 6.4 X10'3 (1.8-7.7); WHITE BLOOD COUNT 8.9 X10'3 (4.5-11.0)
[2023-09-09 06:48] LABS: BASOPHILS % (AUTO) 0.9 % (0-1); EOSINOPHILS % (AUTO) 1.7 % (0-6); HEMOGLOBIN 16.2 g/dl (14.0-17.9); LYMPHOCYTES # (AUTO) 1.4 X10'3 (1.1-4.8); MEAN CORPUSCULAR HEMOGLOBIN 29.5 PG (27.0-31.0); MEAN CORPUSCULAR VOLUME 87.3 FL (78-98); MEAN PLATELET VOLUME 10.7 FL (7.4-10.4); MONOCYTES # (AUTO) 0.8 X10'3 (0-0.9); MONOCYTES % (AUTO) 9.1 % (2-12); NEUTROPHILS % (AUTO) 72.3 % (42-75); PLATELET COUNT 128 X10'3 (140-440); RED CELL DISTRIBUTION WIDTH 16.4 % (11.5-14.5)
[2023-09-09 07:03] LABS: ALANINE AMINOTRANSFERASE 43 U/L (12-78); ALBUMIN/GLOBULIN RATIO 0.9 (1.1-1.5); ALKALINE PHOSPHATASE 90 IU/L (46-116); ANION GAP 8 (8-16); ASPARTATE AMINO TRANSFERASE 27 U/L (10-37); BILIRUBIN,TOTAL 0.8 MG/DL (0.1-1.0); BLOOD UREA NITROGEN 13 MG/DL (7-18); BUN/CREATININE RATIO 10.3 (10.0-20.0); CALCIUM 8.3 MG/DL (8.5-10.1); CHLORIDE 93 MMOL/L (99-107); CHOL/HDL RATIO 4.3 (0.00-4.99); CHOLESTEROL 128 MG/DL (0-200); CREATININE 1.26 MG/DL (0.60-1.10); GLUCOSE 171 MG/DL (70-104); HDL CHOLESTEROL 30 MG/DL (35-60); LDL CHOLESTEROL 71 MG/DL (50-100); MAGNESIUM 2.5 MG/DL (1.5-2.4); SODIUM 132 MMOL/L (135-145); TOTAL CARBON DIOXIDE 31.2 MMOL/L (24-32); TOTAL PROTEIN 6.2 G/DL (6.4-8.2); TRIGLYCERIDES 183 MG/DL (20-135); eCRCL 73 ML/MIN; eGFR 59 ML/MIN
[2023-09-09 07:10] LABS: POTASSIUM 1.9 MMOL/L (3.5-5.1)
[2023-09-09 07:23] LABS: ANISOCYTOSIS 1+; LARGE PLATELETS FEW; PLATELET ESTIMATE DECREASED
[2023-09-09] MEDS: docusate sod 100mg capsule PO SCH (07:32)
[2023-09-09] MEDS: azithromycin/NS 500mg/250ml 250 ML IV SCH (07:32)
[2023-09-09] MEDS: pantoprazole 40mg Tablet.DR PO SCH (07:32)
[2023-09-09] MEDS: heparin, porcine 5000 units/ml vial SQ SCH (07:33)
[2023-09-09] MEDS: K and/or MAG REPLACEMENT MC SCH (07:51)
[2023-09-09] MEDS: traMADol 50MG tablet PO ONE (08:17)
[2023-09-09] MEDS: atorvastatin 20mg tablet PO SCH (10:34)
[2023-09-09] MEDS: aspirin 81mg tab.chew PO SCH (10:34)
[2023-09-09] MEDS: potassium Cl 20 mEq SR tablet PO PRN (10:34)
[2023-09-09 12:37] LABS: ANION GAP 5 (8-16); BLOOD UREA NITROGEN 12 MG/DL (7-18); BUN/CREATININE RATIO 10.8 (10.0-20.0); CALCIUM 8.3 MG/DL (8.5-10.1); CHLORIDE 94 MMOL/L (99-107); CREATININE 1.11 MG/DL (0.60-1.10); GLUCOSE 85 MG/DL (70-104); SODIUM 132 MMOL/L (135-145); TOTAL CARBON DIOXIDE 33.2 MMOL/L (24-32); eCRCL 83 ML/MIN; eGFR 68 ML/MIN
[2023-09-09] MEDS: Potassium Cl inj 40 MEQ in sodium chloride 0.45% 500ml 500 ML IV ONE ×2 (13:05→17:26)
[2023-09-09] MEDS: pregabalin 75mg capsule PO SCH (13:06)
[2023-09-09] MEDS: nitroGLYCERIN 0.4mg SUBLingual tab SL PRN (16:20)
[2023-09-09] MEDS: morphine 2 MG/ML inj. syringe IV PRN (16:32)
[2023-09-09] MEDS: normal saline 1000ml 1,000 ML IV ONE (16:44)
[2023-09-09 19:07] LABS: URINE AMPHETAMINE SCREEN NEGATIVE (Neg); URINE BARBITUATE SCREEN NEGATIVE (Neg); URINE BENZODIAZEPINES SCREEN NEGATIVE (Neg); URINE CANNABINOID SCREEN POSITIVE (Neg); URINE COCAINE SCREEN NEGATIVE (Neg); URINE METHADONE SCREEN NEGATIVE (Neg); URINE OPIATE SCREEN POSITIVE (Neg); URINE PHENCYCLIDINE SCREEN NEGATIVE (Neg)
[2023-09-09 21:09] LABS: ALBUMIN 2.8 G/DL (3.4-5.0); ANION GAP 6 (8-16); BLOOD UREA NITROGEN 10 MG/DL (7-18); BUN/CREATININE RATIO 10.3 (10.0-20.0); CALCIUM 8.4 MG/DL (8.5-10.1); CHLORIDE 99 MMOL/L (99-107); CREATININE 0.97 MG/DL (0.60-1.10); GLUCOSE 163 MG/DL (70-104); SODIUM 133 MMOL/L (135-145); TOTAL CARBON DIOXIDE 27.8 MMOL/L (24-32); eCRCL 95 ML/MIN; eGFR 80 ML/MIN
[2023-09-09 21:16] LABS: POTASSIUM 2.7 MMOL/L (3.5-5.1)
[2023-09-09] MEDS: levetiracetam 250mg tablet PO SCH (21:30)
[2023-09-09] MEDS: duloxetine 30mg CAPSULE.DR PO SCH (21:31)
[2023-09-09] MEDS: apixaban 5mg tablet PO SCH (21:32)
[2023-09-09] MEDS: metoprolol tartrate 50mg tablet PO SCH (21:37)
[2023-09-10] VITALS (10 sets, daily range): BP systolic 95–134; BP diastolic 50–83; PULSE 70–93; RESP 14–18; TEMP 97.1–98.2; O2SAT 90–98
[2023-09-10 02:43] LABS: BASOPHILS # (AUTO) 0.1 X10'3 (0-0.2); BASOPHILS % (AUTO) 1.3 % (0-1); EOSINOPHILS # (AUTO) 0.2 X10'3 (0-0.9); LYMPHOCYTES # (AUTO) 1.9 X10'3 (1.1-4.8); MONOCYTES # (AUTO) 0.7 X10'3 (0-0.9); RED CELL DISTRIBUTION WIDTH 16.7 % (11.5-14.5)
[2023-09-10 02:45] LABS: EOSINOPHILS % (AUTO) 2.9 % (0-6); HEMATOCRIT 47.4 % (42.0-52.0); LYMPHOCYTES % (AUTO) 24.9 % (21-51); MEAN CORPUSCULAR HEMOGLOBIN 29.8 PG (27.0-31.0); MEAN CORPUSCULAR HGB CONC 33.8 g/dL (33.0-36.5); MEAN CORPUSCULAR VOLUME 88.4 FL (78-98); MEAN PLATELET VOLUME 10.9 FL (7.4-10.4); MONOCYTES % (AUTO) 9.6 % (2-12); NEUTROPHILS # (AUTO) 4.7 X10'3 (1.8-7.7); NEUTROPHILS % (AUTO) 61.3 % (42-75); PLATELET COUNT 118 X10'3 (140-440); RED BLOOD COUNT 5.36 X10'6 (4.70-6.10); WHITE BLOOD COUNT 7.6 X10'3 (4.5-11.0)
[2023-09-10 02:49] LABS: ALANINE AMINOTRANSFERASE 43 U/L (12-78); ALBUMIN 2.8 G/DL (3.4-5.0); ALBUMIN/GLOBULIN RATIO 0.9 (1.1-1.5); ALKALINE PHOSPHATASE 81 IU/L (46-116); ANION GAP 6 (8-16); ASPARTATE AMINO TRANSFERASE 27 U/L (10-37); BILIRUBIN,TOTAL 0.6 MG/DL (0.1-1.0); BLOOD UREA NITROGEN 11 MG/DL (7-18); CALCIUM 8.4 MG/DL (8.5-10.1); CHLORIDE 101 MMOL/L (99-107); GLUCOSE 159 MG/DL (70-104); POTASSIUM 3.1 MMOL/L (3.5-5.1); SODIUM 134 MMOL/L (135-145); TOTAL CARBON DIOXIDE 26.7 MMOL/L (24-32); TOTAL PROTEIN 5.8 G/DL (6.4-8.2); eCRCL 92 ML/MIN; eGFR 77 ML/MIN
[2023-09-10] MEDS: potassium Cl 20 mEq SR tablet PO PRN (03:07)
[2023-09-10 07:59] LABS: ALBUMIN 2.7 G/DL (3.4-5.0); ANION GAP 4 (8-16); BLOOD UREA NITROGEN 9 MG/DL (7-18); CALCIUM 8.5 MG/DL (8.5-10.1); CHLORIDE 102 MMOL/L (99-107); GLUCOSE 110 MG/DL (70-104); POTASSIUM 3.1 MMOL/L (3.5-5.1); SODIUM 135 MMOL/L (135-145); TOTAL CARBON DIOXIDE 28.8 MMOL/L (24-32); eCRCL 102 ML/MIN; eGFR 87 ML/MIN
[2023-09-10] MEDS: isosorbide mononitrate 30mg tab.SR.24H PO SCH (08:12)
[2023-09-10] MEDS: spironolactone 25 MG tablet PO SCH (10:00)
[2023-09-10] MEDS ORDERED: nitroGLYCERIN 0.4mg SUBLingual tab SL PRN (12:05)
[2023-09-10] MEDS ORDERED: aminophylline 250mg/10ml inj. IV PRN (12:05)
[2023-09-10] MEDS ORDERED: metoprolol tartrate 1mg/ml inj IV PRN (12:05)
[2023-09-10 17:43] LABS: ALBUMIN 2.6 G/DL (3.4-5.0); ANION GAP 5 (8-16); BLOOD UREA NITROGEN 9 MG/DL (7-18); BUN/CREATININE RATIO 9.1 (10.0-20.0); CALCIUM 8.6 MG/DL (8.5-10.1); CHLORIDE 104 MMOL/L (99-107); CREATININE 0.99 MG/DL (0.60-1.10); GLUCOSE 119 MG/DL (70-104); POTASSIUM 3.5 MMOL/L (3.5-5.1); SODIUM 134 MMOL/L (135-145); TOTAL CARBON DIOXIDE 25.4 MMOL/L (24-32); eCRCL 93 ML/MIN; eGFR 78 ML/MIN
[2023-09-11] VITALS (20 sets, daily range): BP systolic 118–152; BP diastolic 77–110; PULSE 66–94; RESP 10–20; TEMP 97.1–98.6; O2SAT 90–99
[2023-09-11] MEDS: traMADol 50MG tablet PO PRN (03:08)
[2023-09-11 06:37] LABS: BASOPHILS # (AUTO) 0.1 X10'3 (0-0.2); BASOPHILS % (AUTO) 1.3 % (0-1); HEMOGLOBIN 15.5 g/dl (14.0-17.9); MONOCYTES # (AUTO) 0.6 X10'3 (0-0.9)
[2023-09-11 06:39] LABS: EOSINOPHILS # (AUTO) 0.3 X10'3 (0-0.9); EOSINOPHILS % (AUTO) 2.9 % (0-6); HEMATOCRIT 47.6 % (42.0-52.0); LYMPHOCYTES % (AUTO) 22.2 % (21-51); MEAN CORPUSCULAR HEMOGLOBIN 29.4 PG (27.0-31.0); MEAN CORPUSCULAR HGB CONC 32.6 g/dL (33.0-36.5); MEAN CORPUSCULAR VOLUME 90.1 FL (78-98); MEAN PLATELET VOLUME 11.2 FL (7.4-10.4); MONOCYTES % (AUTO) 6.1 % (2-12); NEUTROPHILS # (AUTO) 6.1 X10'3 (1.8-7.7); NEUTROPHILS % (AUTO) 67.5 % (42-75); PLATELET COUNT 110 X10'3 (140-440); RED BLOOD COUNT 5.28 X10'6 (4.70-6.10); RED CELL DISTRIBUTION WIDTH 16.5 % (11.5-14.5)
[2023-09-11 06:49] LABS: ALANINE AMINOTRANSFERASE 36 U/L (12-78); ALBUMIN 2.6 G/DL (3.4-5.0); ALBUMIN/GLOBULIN RATIO 0.8 (1.1-1.5); ALKALINE PHOSPHATASE 76 IU/L (46-116); ANION GAP 6 (8-16); ASPARTATE AMINO TRANSFERASE 19 U/L (10-37); BILIRUBIN,TOTAL 0.6 MG/DL (0.1-1.0); BLOOD UREA NITROGEN 8 MG/DL (7-18); BUN/CREATININE RATIO 8.7 (10.0-20.0); CALCIUM 8.6 MG/DL (8.5-10.1); CHLORIDE 104 MMOL/L (99-107); CREATININE 0.92 MG/DL (0.60-1.10); GLUCOSE 115 MG/DL (70-104); MAGNESIUM 1.9 MG/DL (1.5-2.4); POTASSIUM 3.3 MMOL/L (3.5-5.1); SODIUM 134 MMOL/L (135-145); TOTAL CARBON DIOXIDE 23.6 MMOL/L (24-32); TOTAL PROTEIN 5.7 G/DL (6.4-8.2); eCRCL 100 ML/MIN; eGFR 85 ML/MIN
[2023-09-11] MEDS: ipratropium 0.5 MG/2.5ML nebule NEB PRN (07:36)
[2023-09-11 08:35] LABS: ANISOCYTOSIS 1+; LARGE PLATELETS MODERATE; PLATELET ESTIMATE DECREASED
[2023-09-11] MEDS ORDERED: pneumococcal 23-VAL P-sac vacc 25 mcg/0.5ml vial IMVAC ONE (10:00)
[2023-09-11] MEDS: regadenoson 0.4mg/5ml syringe IV PRN (10:21)
[2023-09-11] MEDS: potassium Cl 20 mEq SR tablet PO SCH (10:49)
[2023-09-11] MEDS: LIDOcaine 5% patch TP SCH (11:30)
[2023-09-11] MEDS: HYDROcodone/acetaminophen 10/325mg tab PO PRN (16:04)
[2023-09-11] MEDS: regadenoson 0.4mg/5ml syringe IV ONE (21:09)
[2023-09-11] MEDS: LORazepam 2 mg/ml vial IV ONE (21:10)
[2023-09-12] VITALS (13 sets, daily range): BP systolic 105–173; BP diastolic 64–120; PULSE 70–101; RESP 11–20; TEMP 97.1–98.6; O2SAT 88–97
[2023-09-12 06:06] LABS: BASOPHILS # (AUTO) 0.1 X10'3 (0-0.2); BASOPHILS % (AUTO) 1.3 % (0-1); EOSINOPHILS # (AUTO) 0.2 X10'3 (0-0.9); HEMOGLOBIN 15.5 g/dl (14.0-17.9); MEAN CORPUSCULAR HGB CONC 33.4 g/dL (33.0-36.5); MEAN PLATELET VOLUME 10.7 FL (7.4-10.4); MONOCYTES # (AUTO) 0.7 X10'3 (0-0.9)
[2023-09-12 06:08] LABS: EOSINOPHILS % (AUTO) 2.2 % (0-6); HEMATOCRIT 46.5 % (42.0-52.0); LYMPHOCYTES # (AUTO) 1.9 X10'3 (1.1-4.8); LYMPHOCYTES % (AUTO) 19.7 % (21-51); MEAN CORPUSCULAR HEMOGLOBIN 29.1 PG (27.0-31.0); MEAN CORPUSCULAR VOLUME 87.4 FL (78-98); MONOCYTES % (AUTO) 7.4 % (2-12); NEUTROPHILS # (AUTO) 6.6 X10'3 (1.8-7.7); NEUTROPHILS % (AUTO) 69.4 % (42-75); PLATELET COUNT 102 X10'3 (140-440); RED BLOOD COUNT 5.33 X10'6 (4.70-6.10); RED CELL DISTRIBUTION WIDTH 16.7 % (11.5-14.5); WHITE BLOOD COUNT 9.5 X10'3 (4.5-11.0)
[2023-09-12 06:12] LABS: ALANINE AMINOTRANSFERASE 38 U/L (12-78); ALBUMIN 2.8 G/DL (3.4-5.0); ALBUMIN/GLOBULIN RATIO 0.9 (1.1-1.5); ALKALINE PHOSPHATASE 92 IU/L (46-116); ANION GAP 4 (8-16); ASPARTATE AMINO TRANSFERASE 19 U/L (10-37); BILIRUBIN,TOTAL 0.8 MG/DL (0.1-1.0); BLOOD UREA NITROGEN 10 MG/DL (7-18); BUN/CREATININE RATIO 10.9 (10.0-20.0); CALCIUM 8.7 MG/DL (8.5-10.1); CHLORIDE 104 MMOL/L (99-107); CREATININE 0.92 MG/DL (0.60-1.10); GLUCOSE 112 MG/DL (70-104); MAGNESIUM 1.4 MG/DL (1.5-2.4); POTASSIUM 3.6 MMOL/L (3.5-5.1); SODIUM 133 MMOL/L (135-145); TOTAL CARBON DIOXIDE 24.7 MMOL/L (24-32); eCRCL 100 ML/MIN; eGFR 85 ML/MIN
[2023-09-12 07:58] LABS: PLATELET ESTIMATE DECREASED
[2023-09-12 07:59] LABS: ANISOCYTOSIS 1+; LARGE PLATELETS FEW
[2023-09-12] MEDS ORDERED: potassium Cl 40MEQ/1/2NS 520ml 520 ML IV PRN (08:15)
[2023-09-12] MEDS ORDERED: magnesium sulf-water 2g/50mL 50 ML IV PRN (08:15)
[2023-09-12] MEDS ORDERED: potassium Cl 20 mEq SR tablet PO PRN ×2 (08:15)
[2023-09-12] MEDS: magnesium Cl slow-release 64mg tablet PO PRN (08:35)
[2023-09-12] MEDS ORDERED: LIDO700A47 TOP (12:40)
[2023-09-12] MEDS ORDERED: POTA-207 PO (12:40)
[2023-09-12] MEDS ORDERED: ISOS60TA71 PO (15:29)
[2023-09-12] MEDS: K and/or MAG REPLACEMENT MC SCH (20:00)
[2023-09-13] VITALS (14 sets, daily range): BP systolic 127–162; BP diastolic 75–111; PULSE 77–117; RESP 16–29; TEMP 97–97.8; O2SAT 92–96
[2023-09-13 06:02] LABS: BASOPHILS # (AUTO) 0.1 X10'3 (0-0.2); EOSINOPHILS % (AUTO) 0.2 % (0-6); HEMATOCRIT 44.4 % (42.0-52.0); HEMOGLOBIN 15.1 g/dl (14.0-17.9); LYMPHOCYTES # (AUTO) 1.4 X10'3 (1.1-4.8); LYMPHOCYTES % (AUTO) 10.7 % (21-51); MEAN CORPUSCULAR HEMOGLOBIN 29.6 PG (27.0-31.0); MEAN CORPUSCULAR VOLUME 87.2 FL (78-98); MEAN PLATELET VOLUME 11.2 FL (7.4-10.4); MONOCYTES # (AUTO) 1.1 X10'3 (0-0.9); MONOCYTES % (AUTO) 8.2 % (2-12); NEUTROPHILS # (AUTO) 10.8 X10'3 (1.8-7.7); NEUTROPHILS % (AUTO) 79.9 % (42-75); PLATELET COUNT 115 X10'3 (140-440); RED BLOOD COUNT 5.09 X10'6 (4.70-6.10); RED CELL DISTRIBUTION WIDTH 16.6 % (11.5-14.5); WHITE BLOOD COUNT 13.5 X10'3 (4.5-11.0)
[2023-09-13 06:24] LABS: ALANINE AMINOTRANSFERASE 33 U/L (12-78); ALBUMIN 2.7 G/DL (3.4-5.0); ALBUMIN/GLOBULIN RATIO 0.8 (1.1-1.5); ALKALINE PHOSPHATASE 105 IU/L (46-116); ANION GAP 10 (8-16); ASPARTATE AMINO TRANSFERASE 15 U/L (10-37); BILIRUBIN,TOTAL 1.4 MG/DL (0.1-1.0); BLOOD UREA NITROGEN 9 MG/DL (7-18); BUN/CREATININE RATIO 10.2 (10.0-20.0); CALCIUM 8.9 MG/DL (8.5-10.1); CHLORIDE 103 MMOL/L (99-107); CREATININE 0.88 MG/DL (0.60-1.10); GLUCOSE 123 MG/DL (70-104); MAGNESIUM 1.3 MG/DL (1.5-2.4); POTASSIUM 3.8 MMOL/L (3.5-5.1); SODIUM 135 MMOL/L (135-145); TOTAL CARBON DIOXIDE 21.8 MMOL/L (24-32); TOTAL PROTEIN 6.3 G/DL (6.4-8.2); eCRCL 105 ML/MIN; eGFR 89 ML/MIN
[2023-09-13 06:28] LABS: LARGE PLATELETS FEW; PLATELET ESTIMATE DECREASED
[2023-09-13 06:29] LABS: ANISOCYTOSIS 1+
[2023-09-13] MEDS: isosorbide mononitrate 30mg tab.SR.24H PO SCH (07:40)
[2023-09-13] MEDS: magnesium sulf-water 2g/50mL 50 ML IV ONE (18:12)
[2023-09-13] MEDS: magnesium sulf-water 4G/100mL 100 ML IV PRN (20:29)
[2023-09-14] VITALS (12 sets, daily range): BP systolic 117–155; BP diastolic 68–116; PULSE 88–110; RESP 17–26; TEMP 97.6–98.6; O2SAT 87–96
[2023-09-14 06:15] LABS: MAGNESIUM 1.8 MG/DL (1.5-2.4); POTASSIUM 3.9 MMOL/L (3.5-5.1)
[2023-09-14] MEDS: lactose-reduced food (Ensure Enlive) - 237ml bottle PO SCH (17:30)
[2023-09-14] MEDS: acetaminophen 325mg tablet PO PRN (17:47)
[2023-09-15] VITALS (8 sets, daily range): BP systolic 113–143; BP diastolic 66–98; PULSE 75–118; RESP 18–27; TEMP 96.8–98.2; O2SAT 88–98
[2023-09-15] MEDS: sodium bicarbonate 1meq/ml inj 150 ML in dextrose 5%-water 1,000 ML IV ONE (05:21)
[2023-09-15] MEDS ORDERED: heparin 1,000unit/ml 10ml vial 10 ML ONE (07:23)
[2023-09-15] MEDS ORDERED: iohexol 350 MG/ML 50ML vial IV ONE (07:23)
[2023-09-15] MEDS ORDERED: fentaNYL/PF 50MCG/1 ML 2ML syringe ONE (07:23)
[2023-09-15] MEDS ORDERED: LIDOcaine 1% (10mg/ml) 2ml vial ONE (07:23)
[2023-09-15] MEDS ORDERED: verapamil 2.5 mg/ml inj IV ONE (07:23)
[2023-09-15] MEDS ORDERED: midazolam 1 mg/ML 2ml injection ONE (07:23)
[2023-09-15] MEDS ORDERED: iohexol 350MG/ML 100ml bottle IV ONE (07:24)
[2023-09-15] MEDS ORDERED: nitroGLYCERIN 500mcg/5mL D5W 5 ML IV ONE (07:25)
[2023-09-15] MEDS ORDERED: LIDOcaine 1% 30ml preserv. free vial ONE (07:37)
[2023-09-15 07:48] LABS: EOSINOPHILS # (AUTO) 0.1 X10'3 (0-0.9); LYMPHOCYTES # (AUTO) 0.7 X10'3 (1.1-4.8); MEAN CORPUSCULAR HGB CONC 33.4 g/dL (33.0-36.5); MONOCYTES # (AUTO) 0.8 X10'3 (0-0.9)
[2023-09-15 07:51] LABS: BASOPHILS % (AUTO) 0.2 % (0-1); EOSINOPHILS % (AUTO) 0.5 % (0-6); HEMATOCRIT 41.5 % (42.0-52.0); HEMOGLOBIN 13.9 g/dl (14.0-17.9); LYMPHOCYTES % (AUTO) 5.8 % (21-51); MEAN CORPUSCULAR HEMOGLOBIN 29.6 PG (27.0-31.0); MEAN CORPUSCULAR VOLUME 88.6 FL (78-98); MEAN PLATELET VOLUME 10.7 FL (7.4-10.4); NEUTROPHILS % (AUTO) 86.5 % (42-75); PLATELET COUNT 115 X10'3 (140-440); RED BLOOD COUNT 4.69 X10'6 (4.70-6.10); RED CELL DISTRIBUTION WIDTH 17.4 % (11.5-14.5); WHITE BLOOD COUNT 11.6 X10'3 (4.5-11.0)
[2023-09-15 07:59] LABS: ALBUMIN 2.2 G/DL (3.4-5.0); ANION GAP 9 (8-16); BLOOD UREA NITROGEN 11 MG/DL (7-18); BUN/CREATININE RATIO 13.8 (10.0-20.0); CALCIUM 8.7 MG/DL (8.5-10.1); CHLORIDE 103 MMOL/L (99-107); GLUCOSE 131 MG/DL (70-104); MAGNESIUM 1.8 MG/DL (1.5-2.4); POTASSIUM 4.3 MMOL/L (3.5-5.1); SODIUM 136 MMOL/L (135-145); TOTAL CARBON DIOXIDE 24.4 MMOL/L (24-32); eCRCL 115 ML/MIN; eGFR > 90 ML/MIN
[2023-09-15] MEDS ORDERED: metoprolol tartrate 1mg/ml inj IV ONE ×2 (08:13→08:16)
[2023-09-15] MEDS ORDERED: HYDROcodone/acetaminophen 10/325mg tab PO PRN (09:40)
[2023-09-15] MEDS ORDERED: HYDROcodone/acetaminophen 5mg/325mg tablet PO PRN (09:40)
[2023-09-15] MEDS ORDERED: METO-411 PO (13:27)
[2023-09-15] MEDS ORDERED: METO-395 PO (13:33)
[2023-09-15 13:56] LABS: PROSTATE SPECIFIC AG, SERUM 0.5 ng/mL (0.0-4.0); PSA, FREE 0.07 ng/mL
[2023-09-15] MEDS: OXAZEpam 15mg capsule PO PRN (16:35)
[2023-09-15] MEDS: digoxin 250mcg/ml 2ml ampule IV ONE (17:11)
[2023-09-15 21:42] LABS: ABG HCO3 23.9 mmol/L (22.0-26.0); ABG OXYGEN SATURATION 92.8 % (94-97); ABG PCO2 (T) 36.3 mmHg (35.0-48.0); ABG PH (T) 7.436 (7.340-7.440); ABG PO2 (T) 65.4 mmHg (75.0-100.0); ALLEN'S TEST Modified; FCOHb 1.6 % (0.0-3.9); FHHb 7.1 % (0.0-5.0); FLOW 4 L/min; FMetHb 0.3 % (0.0-1.5); MODE NASAL CANNULA; PATIENT TEMPERATURE 36.6; TOTAL HEMOGLOBIN 14.4 G/dl (14.0-17.9)
[2023-09-15] MEDS: piperacillin/tazo 3.375gm/50ml 50 ML IV SCH (22:45)
[2023-09-15] MEDS: metoprolol succinate 25mg (24-HOUR) SR. Tablet PO SCH (23:05)
[2023-09-16 07:14] LABS: ALBUMIN 2.3 G/DL (3.4-5.0); ANION GAP 8 (8-16); BLOOD UREA NITROGEN 12 MG/DL (7-18); BUN/CREATININE RATIO 12.5 (10.0-20.0); CALCIUM 8.8 MG/DL (8.5-10.1); CHLORIDE 100 MMOL/L (99-107); CREATININE 0.96 MG/DL (0.60-1.10); GLUCOSE 123 MG/DL (70-104); POTASSIUM 3.7 MMOL/L (3.5-5.1); SODIUM 136 MMOL/L (135-145); TOTAL CARBON DIOXIDE 27.8 MMOL/L (24-32); eCRCL 96 ML/MIN; eGFR 81 ML/MIN
[2023-09-16 07:33] LABS: BASOPHILS # (AUTO) 0.1 X10'3 (0-0.2); BASOPHILS % (AUTO) 0.7 % (0-1); EOSINOPHILS # (AUTO) 0.2 X10'3 (0-0.9); EOSINOPHILS % (AUTO) 2.4 % (0-6); HEMOGLOBIN 14.4 g/dl (14.0-17.9); MONOCYTES # (AUTO) 0.6 X10'3 (0-0.9); PLATELET COUNT 130 X10'3 (140-440)
[2023-09-16 07:34] LABS: HEMATOCRIT 43.7 % (42.0-52.0); LYMPHOCYTES # (AUTO) 0.8 X10'3 (1.1-4.8); LYMPHOCYTES % (AUTO) 8.6 % (21-51); MEAN CORPUSCULAR HEMOGLOBIN 29.5 PG (27.0-31.0); MEAN CORPUSCULAR VOLUME 89.3 FL (78-98); MEAN PLATELET VOLUME 10.6 FL (7.4-10.4); MONOCYTES % (AUTO) 6.8 % (2-12); NEUTROPHILS # (AUTO) 7.6 X10'3 (1.8-7.7); NEUTROPHILS % (AUTO) 81.5 % (42-75); RED BLOOD COUNT 4.89 X10'6 (4.70-6.10); RED CELL DISTRIBUTION WIDTH 17.5 % (11.5-14.5); WHITE BLOOD COUNT 9.4 X10'3 (4.5-11.0)
[2023-09-16 07:59] LABS: LARGE PLATELETS FEW; PLATELET ESTIMATE DECREASED; POLYCHROMASIA FEW
[2023-09-16 08:00] LABS: ANISOCYTOSIS 1+; BURR CELLS FEW
[2023-09-16] MEDS ORDERED: LAN0.125T PO (08:07)
[2023-09-16 08:45] VITALS: PULSE 103; RESP 18; O2SAT 92
[2023-09-16] MEDS: digoxin 125mcg (0.125mg) tablet PO SCH (08:52)
[2023-09-16 08:55] VITALS: PULSE 96
== END 2023-09-16 14:09 | disposition home or self-care (01) | DRG 192 ==
LOC: ER 22:06 → ED HOLD 09-09 00:01 → PCU 3S 09-09 02:15
PROVIDERS: ADMIT Internal Medicine Pulmonary Disease; ATTEND Family Medicine
PROC: 4A02XM4 Measurement of Cardiac Total Activity, External Approach (ICD-10-PCS; principal; 2023-09-11)
PROC: 3E033HZ Introduction of Radioactive Substance into Peripheral Vein, Percutaneous Approach (ICD-10-PCS; 2023-09-11)
PROC: 4A023N7 Measurement of Cardiac Sampling and Pressure, Left Heart, Percutaneous Approach (ICD-10-PCS; 2023-09-15)
PROC: B2111ZZ Fluoroscopy of Multiple Coronary Arteries using Low Osmolar Contrast (ICD-10-PCS; 2023-09-15)
PROC: B2131ZZ Fluoroscopy of Multiple Coronary Artery Bypass Grafts using Low Osmolar Contrast (ICD-10-PCS; 2023-09-15)
PROC: B2151ZZ Fluoroscopy of Left Heart using Low Osmolar Contrast (ICD-10-PCS; 2023-09-15)
DX: T82.898A Other specified complication of vascular prosthetic devices, implants and grafts, initial encounter (principal); N17.0 Acute kidney failure with tubular necrosis; I25.110 Atherosclerotic heart disease of native coronary artery with unstable angina pectoris; E86.0 Dehydration; I48.0 Paroxysmal atrial fibrillation; E87.1 Hypo-osmolality and hyponatremia; E83.42 Hypomagnesemia; E87.6 Hypokalemia; T50.1X5A Adverse effect of loop [high-ceiling] diuretics, initial encounter; T50.2X5A Adverse effect of carbonic-anhydrase inhibitors, benzothiadiazides and other diuretics, initial encounter; F10.10 Alcohol abuse, uncomplicated; I25.5 Ischemic cardiomyopathy; G40.909 Epilepsy, unspecified, not intractable, without status epilepticus; F12.10 Cannabis abuse, uncomplicated; F17.210 Nicotine dependence, cigarettes, uncomplicated; Y83.8 Other surgical procedures as the cause of abnormal reaction of the patient, or of later complication, without mention of misadventure at the time of the procedure; J44.9 Chronic obstructive pulmonary disease, unspecified; I25.2 Old myocardial infarction; Z87.11 Personal history of peptic ulcer disease; Z95.1 Presence of aortocoronary bypass graft; Y92.89 Other specified places as the place of occurrence of the external cause
CPT/HCPCS: 36415; 36600; 71250; 72192; 72220; 78452; 80048; 80053; 80061; 80305; 81001; 82570; 82803; 82948; 83036; 83605; 83735; 83880; 84132; 84133; 84145; 84153; 84154; 84484; 85008; 85018; 85025; 87040; 87077; 87081; 87088; 87186; 87811; 90732; 93005; 93017; 93306; 93459; 94640; 94760; 96365; 97116; 97162; 99152; 99291; A6258; A9500; C1725; C1760; C1894; G0378; J0456; J0696; J1160; J1644; J2250; J2270; J2543; J2785; J3010; J3475; J3480; J3490; J7030; J7040; J7070; Q9967